=== PATIENT | female | born 1935 | race Caucasian/White ===

== ENCOUNTER 2019-11-27 09:04 | Emergency (ER) | payer MEDICARE, OTHER ==
[2019-11-27] MEDS ORDERED: Sodium Chloride 0.9% 10 ML Syringe FLUSH PRN (09:14)
[2019-11-27] MEDS ORDERED: Aspirin 81 MG Tab.Chew PO ONE (09:15)
[2019-11-27] MEDS ORDERED: Metoprolol Succinate 50 MG Tab.ER PO ONE (09:25)
[2019-11-27] MEDS ORDERED: Lisinopril 10 MG Tab PO ONE (09:26)
--- NOTE | 2019-11-27 09:34 | EDM.PDOC ---
ED HPI GENERAL MEDICAL PROBLEM - General Chief Complaint: Neurological Problem Stated Complaint: POSSIBLE STROKE Time Seen by Provider: 11/27/19 09:15 Source of Information: Reports: Patient History Limitations: Reports: Other (no old records) - History of Present Illness INITIAL COMMENTS - FREE TEXT/NARRATIVE: 84 yo female presents after transient L arm and leg weakness and numbness this morning that resulted in a fall without injury. Says she noted a rapid heart rate with this spell that she has had in the past and which has never been documented on a heart monitor so she does not know if this tachycardia represents afib or not. She is due for her morning dose of her HTN meds, but has not missed any doses. Sx's are completely resolved before arrival. Here with her . Just moved to the area from [place]. She is a retired nurse. No past hx of TIA or CVA. BP usually in the 120's systolic. Onset: Today Onset Date: 11/27/19 Duration: Minutes:, Resolved Prior to Arrival Location: Reports: Upper Extremity, Left, Lower Extremity, Left Quality: Reports: Other (no pain) Severity: Moderate Improves with: Reports: Other (time) Worsens with: Reports: Other (unknown, ? associated with her tachycardia) Context: Reports: Other (See HPI) Associated Symptoms: Reports: Headaches (mild sinus, not new), Weakness (L sided ). 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: Other (see below) (none) - Related Data Allergies Allergy/AdvReac Type Severity Reaction Status Date / Time egg yolk Allergy Unknown Cannot Verified 11/27/19 09:37 Remember Home Meds: Home Meds Aspirin 81 mg PO DAILY 11/27/19 [History] Glucosam/Chond-Msm1/C/Sebastian/Bor [Fttcquc-Rscox-KLH Complex Cplt] 1 each PO DAILY 11/27/19 [History] Levothyroxine Sodium [Synthroid] 75 mcg PO DAILY 11/27/19 [History] Loteprednol [Lotemax 0.5%] 1 drop EYELF DAILY 11/27/19 [History] Metoprolol Succinate 25 mg PO QPM 11/27/19 [History] Metoprolol Succinate 50 mg PO QAM 11/27/19 [History] Multivitamin [Multi-Day Vitamins] 1 tab PO DAILY 11/27/19 [History] Ubidecarenone [Coenzyme Q-10] 200 mg PO DAILY 11/27/19 [History] lisinopriL [Lisinopril] 5 mg PO DAILY 11/27/19 [History] Past Medical History HEENT History: Reports: Impaired Vision Cardiovascular History: Reports: Hypertension Endocrine/Metabolic History: Reports: Hypothyroidism - Infectious Disease History Infectious Disease History: Reports: Chicken Pox Social & Family History - Tobacco Use Smoking Status *Q: Never Smoker - Caffeine Use Caffeine Use: Reports: Coffee - Recreational Drug Use Recreational Drug Use: No ED ROS GENERAL - Review of Systems Review Of Systems: See Below Constitutional: Reports: No Symptoms HEENT: Reports: No Symptoms Respiratory: Reports: No Symptoms Cardiovascular: Reports: Palpitations (transiet) GI/Abdominal: Reports: No Symptoms : Reports: No Symptoms Musculoskeletal: Reports: No Symptoms Skin: Reports: No Symptoms Neurological: Reports: Numbness (L arm and leg), Difficulty Walking (during spell only), Weakness (L arm and L leg). Denies: Confusion, Dizziness, Headache , Trouble Speaking, Change in Speech Psychiatric: Reports: No Symptoms ED EXAM, NEURO - Physical Exam Exam: See Below Exam Limited By: No Limitations General Appearance: Alert, WD/WN, No Apparent Distress Eye Exam: Bilateral Eye: EOMI, Normal Inspection, PERRL Ears: Normal External Exam, Normal Canal, Hearing Grossly Normal, Normal TMs Nose: Normal Inspection, No Blood Throat/Mouth: Normal Inspection, Normal Lips, Normal Oropharynx, Normal Voice, No Airway Compromise Head Exam: Atraumatic, Normocephalic Neck: Normal Inspection Respiratory/Chest: No Respiratory Distress, Lungs Clear, Normal Breath Sounds, No Accessory Muscle Use Cardiovascular: Regular Rate, Rhythm, No Edema GI/Abdominal: Normal Bowel Sounds, Soft, Non-Tender, No Distention Neurological: Alert, Normal Mood/Affect, Normal Dorsiflexion, CN II-XII Intact, No Motor/Sensory Deficits, Oriented x 3. No: Abnormal Sensation, Difficulty Walking Back Exam: Normal Inspection. No: CVA Tenderness (R), CVA Tenderness (L) Extremities: Normal Inspection, Normal Range of Motion, Non-Tender, No Pedal Edema Psychiatric: Normal Affect, Normal Mood Skin Exam: Warm, Dry, Intact, Normal Color, No Rash EKG INTERPRETATION EKG Date: 11/27/19 Time: 09:45 Rhythm: NSR Rate (Beats/Min): 68 [place]: Normal P-Wave: Present QRS: Normal ST-T: Normal QT: Normal Comparison: NA - No Prior EKG Course - Vital Signs Last Recorded V/S: Last Vital Signs Temp 35.9 C L 11/27/19 09:09 Pulse 77 11/27/19 09:32 Resp 10 L 11/27/19 09:09 BP 186/85 H 11/27/19 09:32 Pulse Ox 99 11/27/19 09:09 - Orders/Labs/Meds Orders: Active Orders 24 hr Category Date Time Status Cardiac Monitoring [RC] .As Directed Care 11/27/19 09:14 Active EKG Documentation Completion [RC] ASDIRECTED Care 11/27/19 09:28 Active Carotid Comp [US] Stat Exams 11/27/19 11:11 Ordered Sodium Chloride 0.9% [Saline Flush] Med 11/27/19 09:14 Active 10 ml FLUSH ASDIRECTED PRN Saline Lock Insert [OM.PC] Routine Oth 11/27/19 09:14 Ordered EKG 12 Lead [EK] Routine Ther 11/27/19 09:28 Ordered Event Monitor [EK] Routine Ther 11/27/19 11:06 Ordered Medication Orders Sodium Chloride (Saline Flush) 10 ml FLUSH ASDIRECTED PRN PRN Reason: Keep Vein Open Last Admin: 11/27/19 09:34 Dose: 10 ml Labs: Laboratory Tests 11/27/19 11/27/19 11/27/19 Range/Units 09:44 09:44 09:44 WBC 5.9 (4.5-11.0) K/uL RBC 4.14 (3.30-5.50) M/uL Hgb 12.2 (12.0-15.0) g/dL Hct 39.0 (36.0-48.0) % MCV 94 (80-98) fL MCH 30 (27-31) pg MCHC 31 L (32-36) % Plt Count 265 (150-400) K/uL Sodium 138 L (140-148) mmol/L Potassium 4.8 (3.6-5.2) mmol/L Chloride 104 (100-108) mmol/L Carbon Dioxide 25 (21-32) mmol/L Anion Gap 13.8 (5.0-14.0) mmol/L BUN 20 H (7-18) mg/dL Creatinine 1.0 (0.6-1.0) mg/dL Est Cr Clr Drug Dosing 30.08 mL/min Estimated GFR (MDRD) 53 L (>60) Glucose 111 H (74-106) mg/dL Calcium 9.1 (8.5-10.1) mg/dL Troponin I < 0.017 (0.000-0.056) ng/mL Urine Color (YELLOW) Urine Appearance (CLEAR) Urine pH (5.0-8.0) Ur Specific [place] (1.008-1.030) Urine Protein (NEGATIVE) mg/dL Urine Glucose (UA) (NEGATIVE) mg/dL Urine Ketones (NEGATIVE) mg/dL Urine Occult Blood (NEGATIVE) Urine Nitrite (NEGATIVE) Urine Bilirubin (NEGATIVE) Urine Urobilinogen (0.2-1.0) EU/dL Ur Leukocyte Esterase (NEGATIVE) Urine RBC (0-5) Urine WBC (0-5) Ur Epithelial Cells Urine Bacteria 11/27/19 Range/Units 10:48 WBC (4.5-11.0) K/uL RBC (3.30-5.50) M/uL Hgb (12.0-15.0) g/dL Hct (36.0-48.0) % MCV (80-98) fL MCH (27-31) pg MCHC (32-36) % Plt Count (150-400) K/uL Sodium (140-148) mmol/L Potassium (3.6-5.2) mmol/L Chloride (100-108) mmol/L Carbon Dioxide (21-32) mmol/L Anion Gap (5.0-14.0) mmol/L BUN (7-18) mg/dL Creatinine (0.6-1.0) mg/dL Est Cr Clr Drug Dosing mL/min Estimated GFR (MDRD) (>60) Glucose (74-106) mg/dL Calcium (8.5-10.1) mg/dL Troponin I (0.000-0.056) ng/mL Urine Color Yellow (YELLOW) Urine Appearance Clear (CLEAR) Urine pH 6.5 (5.0-8.0) Ur Specific [place] 1.015 (1.008-1.030) Urine Protein Negative (NEGATIVE) mg/dL Urine Glucose (UA) Negative (NEGATIVE) mg/dL Urine Ketones Negative (NEGATIVE) mg/dL Urine Occult Blood Trace-lysed H (NEGATIVE) Urine Nitrite Negative (NEGATIVE) Urine Bilirubin Negative (NEGATIVE) Urine Urobilinogen 0.2 (0.2-1.0) EU/dL Ur Leukocyte Esterase Negative (NEGATIVE) Urine RBC Not seen (0-5) Urine WBC Not seen (0-5) Ur Epithelial Cells Not seen Urine Bacteria Not seen Meds: Medications Generic Name Dose Route Start Last Admin Trade Name Freq PRN Reason Stop Dose Admin Sodium Chloride 10 ml 11/27/19 09:14 11/27/19 09:34 Saline Flush FLUSH 10 ml ASDIRECTED PRN Administration Keep Vein Open Discontinued Medications Generic Name Dose Route Start Last Admin Trade Name Freq PRN Reason Stop Dose Admin Aspirin 324 mg 11/27/19 09:15 11/27/19 09:33 Aspirin PO 11/27/19 09:16 324 mg ONETIME ONE Administration Lisinopril 20 mg 11/27/19 09:26 11/27/19 09:32 Prinivil PO 11/27/19 09:27 20 mg ONETIME ONE Administration Metoprolol Succinate 50 mg 11/27/19 09:25 11/27/19 09:32 Toprol Xl PO 11/27/19 09:26 50 mg ONETIME ONE Administration - Radiology Interpretation Free Text/Narrative:: Head CT scan without contrast-neg CT Results Date: 11/27/19 CT Results Time: 13:12 - Re-Assessments/Exams Free Text/Narrative Re-Assessment/Exam: 11/27/19 10:36 Doing well, BP slowly coming down, still too high. Holter monitor next available tomorrow. Free Text/Narrative Re-Assessment/Exam: 11/27/19 11:12 Ambulated in the halls without issue. BP came down a bit more, still too high. States she has "white coat syndrome". Departure - Departure Time of Disposition: 13:15 Disposition: Home, Self-Care 01 Condition: Fair Clinical Impression: TIA (transient ischemic attack), Tachycardia HTN (hypertension) Qualifiers: Hypertension type: unspecified Qualified Code(s): I10 - Essential (primary) hypertension - Discharge Information *PRESCRIPTION DRUG MONITORING PROGRAM REVIEWED*: No *COPY OF PRESCRIPTION DRUG MONITORING REPORT IN PATIENT TMAY: No Instructions: Transient Ischemic Attack, [id number], Hypertension, Adult, [id number] Referrals: PCP,None [Primary Care Provider] - Forms: ED Department Discharge Additional Instructions: Increase your lisinopril to 20 mg daily( 5 mg x 4). Increase your metoprolol to 50 mg every 12 hrs. Increase your aspirin to 325 mg(Ecotrin) with a large meal daily. Return your event recorder as directed. Recheck with your provider next week, return if worse in the interim. Sepsis Event Note (ED) - Evaluation Sepsis Screening Result: No Definite Risk - Focused Exam Vital Signs: Vital Signs Temp Pulse Pulse Resp BP BP Pulse Ox 11/27/19 09:32 77 186/85 H 11/27/19 09:09 35.9 C L 83 10 L 189/91 H 99 - My Orders Last 24 Hours: My Active Orders 11/27/19 09:14 Cardiac Monitoring [RC] .As Directed Sodium Chloride 0.9% [Saline Flush] 10 ml FLUSH ASDIRECTED PRN Saline Lock Insert [OM.PC] Routine 11/27/19 09:28 EKG Documentation Completion [RC] ASDIRECTED EKG 12 Lead [EK] Routine 11/27/19 11:06 Event Monitor [EK] Routine 11/27/19 11:11 Carotid Comp [US] Stat - Assessment/Plan Last 24 Hours: My Active Orders 11/27/19 09:14 Cardiac Monitoring [RC] .As Directed Sodium Chloride 0.9% [Saline Flush] 10 ml FLUSH ASDIRECTED PRN Saline Lock Insert [OM.PC] Routine 11/27/19 09:28 EKG Documentation Completion [RC] ASDIRECTED EKG 12 Lead [EK] Routine 11/27/19 11:06 Event Monitor [EK] Routine 11/27/19 11:11 Carotid Comp [US] Stat
--- NOTE | 2019-11-27 13:10 | CT ---
Head wo Cont CLINICAL HISTORY: Left-sided weakness and numbness COMPARISON: None TECHNIQUE: Transverse scans were obtained from the base of the skull through the vertex without IV contrast on a multislice, multidetector CT scanner. A scribe dose FINDINGS: No focal abnormal parenchymal density is identified. There is no mass effect, hemorrhage, or extraaxial collection. The basal cisterns and sulci over the convexities are prominent. The ventricles are normal for age. IMPRESSION: Age-related atrophy. No focal lesion mass effect or hemorrhage
--- NOTE | 2019-11-27 14:32 | US ---
Carotid Comp INDICATION: TIA COMPARISON: TIA FINDINGS RIGHT: There is mild plaque in the right the carotid bifurcation. Peak systolic velocity in the internal carotid artery is 114 cm/sec. Diastolic velocity is 30 cm/sec. ICA/CCA ratio is 1.5. LEFT: There is minimal plaque in the left carotid bifurcation. Peak systolic velocity in the internal carotid artery is 80 cm/sec. Diastolic velocity is 35 cm/sec. ICA/CCA ratio is 1.0. External carotid arteries are patent bilaterally. Antegrade flow in both vertebral arteries. IMPRESSION: Mild plaque in the right carotid bifurcation and minimal plaque in the left. ICA stenosis is less than 50% bilaterally NASCET criteria used.
== END 2019-11-27 14:00 | disposition home or self-care (01) ==
LOC: JP.ED 09:04
DX: G45.9 Transient cerebral ischemic attack, unspecified (principal); I10 Essential (primary) hypertension; E03.9 Hypothyroidism, unspecified; Z91.012 Allergy to eggs; Z79.82 Long term (current) use of aspirin; Z79.899 Other long term (current) drug therapy
CPT/HCPCS: 36415; 70450; 80048; 81001; 84484; 85027; 93005; 93880; 99284; 99285; A9270; 93010

== ENCOUNTER 2019-11-30 10:07 | Emergency (ER) | payer MEDICARE, OTHER ==
--- NOTE | 2019-11-30 11:42 | EDM.PDOC ---
<Gerry Perez - Last Filed: 11/30/19 12:13> ED HPI GENERAL MEDICAL PROBLEM - General Chief Complaint: Cardiovascular Problem Stated Complaint: LIGHT HEADED, HEART PALPS Time Seen by Provider: 11/30/19 11:15 - Related Data Allergies Allergy/AdvReac Type Severity Reaction Status Date / Time egg yolk Allergy Unknown Cannot Verified 11/30/19 10:20 Remember Home Meds: Home Meds Aspirin 81 mg PO DAILY 11/27/19 [History] Glucosam/Chond-Msm1/C/Sebastian/Bor [Ravlohv-Ymrqk-FYV Complex Cplt] 1 each PO DAILY 11/27/19 [History] Levothyroxine Sodium [Synthroid] 75 mcg PO DAILY 11/27/19 [History] Loteprednol [Lotemax 0.5%] 1 drop EYELF DAILY 11/27/19 [History] Metoprolol Succinate 25 mg PO QPM 11/27/19 [History] Metoprolol Succinate 50 mg PO QAM 11/27/19 [History] Multivitamin [Multi-Day Vitamins] 1 tab PO DAILY 11/27/19 [History] Ubidecarenone [Coenzyme Q-10] 200 mg PO DAILY 11/27/19 [History] lisinopriL [Lisinopril] 20 mg PO DAILY 11/27/19 [History] Course - Vital Signs Last Recorded V/S: Last Vital Signs Temp Pulse 70 11/30/19 12:00 Resp 13 11/30/19 10:41 BP 167/84 H 11/30/19 12:00 Pulse Ox 98 11/30/19 10:41 - Orders/Labs/Meds Labs: Laboratory Tests 11/30/19 Range/Units 11:36 Magnesium 2.2 (1.8-2.4) mg/dL TSH, Ultra Sensitive 2.178 (0.358-3.740) uIU/mL Departure - Departure Disposition: Home, Self-Care 01 Clinical Impression: Palpitations Instructions: Palpitations, [id number] Referrals: PCP,None [Primary Care Provider] - Forms: ED Department Discharge Care Plan Goals: Keep monitor on until rechecked in 2 days. Mo medication changes unless you want to try Prilosec as discussed. Return if conditions change. Sepsis Event Note (ED) - Focused Exam Vital Signs: Vital Signs Pulse Resp BP Pulse Ox 11/30/19 12:00 70 167/84 H 11/30/19 11:30 73 158/80 H 11/30/19 11:15 77 184/89 H 11/30/19 10:55 74 171/75 H 11/30/19 10:41 73 13 161/75 H 98 11/30/19 10:30 76 161/75 H 11/30/19 10:19 80 13 190/79 H 98 - Assessment/Plan Plan: I personally performed or re-performed the physical examination and medical decision making. I have verified all student documentation or findings, including history, physical exam and/or medical decision making. <YelitzaanantEm M - Last Filed: 11/30/19 13:05> ED HPI GENERAL MEDICAL PROBLEM - General Source of Information: Reports: Patient History Limitations: Reports: No Limitations - History of Present Illness INITIAL COMMENTS - FREE TEXT/NARRATIVE: 84 year old female seen here in ER 11-27-19 with TIA like s/s of left arm and left leg numbness and tingling. Resolved prior to arrival. BL carotid US was negative. CT head negative. Pt is hypertensive. See VS. Pt is here again today with symptoms of "fast heat beat much like extra energy". Pt is wearing a Holter monitor. The "event" was recorder about 0923 today. Transmitted event from hospital landline to have Holter tech determine heart rhythm. Tech (Susie) indicated it was a sinus arrhythmia 64-103. No PAC, PJC's, Afib, or jct rhythms. Second recording was sinus rhythm 60-100. Will draw a Mag and TSH despite benign work up as an added assurance for pt. Pt will see PCP in about a month for yearly check up and to have thyroid checked. Onset: Gradual (Pt had 1st even of Sinus arr 11-27-19 and today 11-30-19. ) Duration: Intermittent, Recurring (2-3 episodes since 11-27-19) Location: Reports: Chest (Holter monitor), Abdomen Quality: Reports: Other (fleeting sense of extra energy) Improves with: Reports: None Worsens with: Reports: None Associated Symptoms: Reports: No Other Symptoms Past Medical History HEENT History: Reports: Impaired Vision Cardiovascular History: Reports: Arrhythmia, Hypertension Gastrointestinal History: Reports: Irritable Bowel Syndrome Genitourinary History: Reports: None Musculoskeletal History: Reports: Arthritis Neurological History: Reports: Headaches, Chronic, TIA Endocrine/Metabolic History: Reports: Hypothyroidism - Infectious Disease History Infectious Disease History: Reports: Chicken Pox, Measles, Mumps - Past Surgical History Head Surgeries/Procedures: Reports: None HEENT Surgical History: Reports: None Cardiovascular Surgical History: Reports: None GI Surgical History: Reports: Appendectomy Female Surgical History: Reports: Hysterectomy, Oophorectomy Endocrine Surgical History: Reports: None Neurological Surgical History: Reports: None Musculoskeletal Surgical History: Reports: Other (See Below) Other Musculoskeletal Surgeries/Procedures:: pin and screws in right ankle Dermatological Surgical History: Reports: None Social & Family History - Family History Family Medical History: Noncontributory - Tobacco Use Smoking Status *Q: Former Smoker Years of Tobacco use: 10 Packs/Tins Daily: 1 Used Tobacco, but Quit: Yes Month/Year Tobacco Last Used: 1949 Second Hand Smoke Exposure: No - Caffeine Use Caffeine Use: Reports: Coffee - Alcohol Use Days Per Week of Alcohol Use: 2 Number of Drinks Per Day: 1 Total Drinks Per Week: 2 - Recreational Drug Use Recreational Drug Use: No ED ROS GENERAL - Review of Systems Review Of Systems: See Below Constitutional: Reports: No Symptoms Respiratory: Reports: No Symptoms Cardiovascular: Reports: No Symptoms, Other (Holter monitor events 11-27-19 and . Transmitted to [facility]. See HPI) Endocrine: Reports: No Symptoms GI/Abdominal: Reports: No Symptoms : Reports: No Symptoms Musculoskeletal: Reports: No Symptoms Skin: Reports: No Symptoms, Rash Neurological: Reports: No Symptoms Psychiatric: Reports: Anxiety (mild and intermittent) Immunologic: Reports: No Symptoms ED EXAM, GENERAL - Physical Exam Exam: See Below Free Text/Narrative:: Pt is lying in hospital bed in no acute distress. Able to give H&P. Exam Limited By: No Limitations General Appearance: Alert, WD/WN, No Apparent Distress Head: Normocephalic Neck: Normal Inspection, Full Range of Motion Respiratory/Chest: No Respiratory Distress, Lungs Clear, Normal Breath Sounds, No Accessory Muscle Use, Chest Non-Tender Cardiovascular: Normal Peripheral Pulses, Regular Rate, Rhythm, No Edema, No Gallop, No JVD, No Murmur, No Rub Peripheral Pulses: 2+: Radial (L), Radial (R), Posterior Tibial (L), Posterior Tibial (R), Dorsalis Pedis (L), Dorsalis Pedis (R) GI/Abdominal: Normal Bowel Sounds Extremities: Normal Inspection, Normal Range of Motion, No Pedal Edema, Normal Capillary Refill Neurological: Alert, Oriented Psychiatric: Anxious (intermittent due to recorder heart events ) Skin Exam: Warm, Dry, Intact, Normal Color Course - Orders/Labs/Meds Labs: Laboratory Tests 11/30/19 Range/Units 11:36 Magnesium 2.2 (1.8-2.4) mg/dL TSH, Ultra Sensitive 2.178 (0.358-3.740) uIU/mL - Re-Assessments/Exams Free Text/Narrative Re-Assessment/Exam: 11/30/19 12:04 Pt remains SS. SR. While waiting for lab results, pt remembered sister had pheochromocytoma that elected tachycardia and HTN. 11/30/19 12:20 TSH and Mg normal. Pt to see PCP in 2 days. Asymptomatic and remained in SR all ER stay. Departure - Departure Time of Disposition: 12:52 Sepsis Event Note (ED) - Evaluation Sepsis Screening Result: No Definite Risk
== END 2019-11-30 12:53 | disposition home or self-care (01) ==
LOC: JP.ED 10:07
DX: R00.2 Palpitations (principal); I10 Essential (primary) hypertension; E03.9 Hypothyroidism, unspecified; Z87.891 Personal history of nicotine dependence; Z86.73 Personal history of transient ischemic attack (TIA), and cerebral infarction without residual deficits; Z91.012 Allergy to eggs; Z79.82 Long term (current) use of aspirin; Z79.899 Other long term (current) drug therapy
CPT/HCPCS: 36415; 83735; 84443; 99284

== ENCOUNTER 2019-12-04 09:41 | Emergency (ER) | payer MEDICARE, OTHER ==
--- NOTE | 2019-12-04 11:18 | EDM.PDOC ---
ED HPI GENERAL MEDICAL PROBLEM - General Chief Complaint: Cardiovascular Problem Stated Complaint: HEART ISSUES Time Seen by Provider: 12/04/19 10:28 Source of Information: Reports: Patient, Family, Old Records, RN Notes Reviewed History Limitations: Reports: No Limitations - History of Present Illness INITIAL COMMENTS - FREE TEXT/NARRATIVE: 84-year-old female presents emergency department a complaint of palpitations, she has been to the emergency department several times over the last week first evaluation concern for TIA with left-sided numbness and weakness work-up inclu ded CT scan and carotid ultrasound her symptoms lasted less than an hour. She has followed up with her primary adjustment of medications risk modification is currently being evaluated for her recent TIA she does have the event monitor in place and has been working on her cholesterol and her blood pressure issues. For the event today she did press the event monitor that she is wearing she felt she was having palpitations event lasted less than 2 minutes. She then reported to the emergency department for further evaluation we do have the output from the event monitor which demonstrates sinus rhythm no arrhythmias are detected - Related Data Allergies Allergy/AdvReac Type Severity Reaction Status Date / Time egg yolk Allergy Unknown Cannot Verified 12/04/19 10:06 Remember Home Meds: Home Meds Glucosam/Chond-Msm1/C/Sebastian/Bor [Jvahqxs-Gciau-DPU Complex Cplt] 1 each PO DAILY 11/27/19 [History] Levothyroxine Sodium [Synthroid] 75 mcg PO DAILY 11/27/19 [History] Loteprednol [Lotemax 0.5%] 1 drop EYELF DAILY 11/27/19 [History] Metoprolol Succinate 50 mg PO QAM 11/27/19 [History] Multivitamin [Multi-Day Vitamins] 1 tab PO DAILY 11/27/19 [History] Ubidecarenone [Coenzyme Q-10] 200 mg PO DAILY 11/27/19 [History] lisinopriL [Lisinopril] 20 mg PO DAILY 11/27/19 [History] Aspirin [Aspirin EC] 1 tab PO DAILY 12/04/19 [History] Past Medical History HEENT History: Reports: Impaired Vision Cardiovascular History: Reports: Arrhythmia, Hypertension Gastrointestinal History: Reports: Irritable Bowel Syndrome Genitourinary History: Reports: None Musculoskeletal History: Reports: Arthritis Neurological History: Reports: Headaches, Chronic, TIA Endocrine/Metabolic History: Reports: Hypothyroidism - Infectious Disease History Infectious Disease History: Reports: Chicken Pox, Measles, Mumps - Past Surgical History Head Surgeries/Procedures: Reports: None HEENT Surgical History: Reports: None Cardiovascular Surgical History: Reports: None GI Surgical History: Reports: Appendectomy Female Surgical History: Reports: Hysterectomy, Oophorectomy Endocrine Surgical History: Reports: None Neurological Surgical History: Reports: None Musculoskeletal Surgical History: Reports: Other (See Below) Other Musculoskeletal Surgeries/Procedures:: pin and screws in right ankle Dermatological Surgical History: Reports: None Social & Family History - Family History Family Medical History: Noncontributory - Tobacco Use Smoking Status *Q: Never Smoker - Caffeine Use Caffeine Use: Reports: Coffee ED ROS GENERAL - Review of Systems Review Of Systems: See Below Constitutional: Reports: No Symptoms HEENT: Reports: No Symptoms Respiratory: Reports: No Symptoms Cardiovascular: Reports: Palpitations GI/Abdominal: Reports: No Symptoms : Reports: No Symptoms Musculoskeletal: Reports: No Symptoms ED EXAM, GENERAL - Physical Exam Exam: See Below Exam Limited By: No Limitations General Appearance: Alert, WD/WN, No Apparent Distress Respiratory/Chest: No Respiratory Distress, Lungs Clear, Normal Breath Sounds, No Accessory Muscle Use, Chest Non-Tender Cardiovascular: Regular Rate, Rhythm, No Murmur GI/Abdominal: Soft, Non-Tender Course - Vital Signs Last Recorded V/S: Last Vital Signs Temp 97.5 F 12/04/19 10:16 Pulse 84 12/04/19 10:16 Resp 16 12/04/19 10:16 BP 196/84 H 12/04/19 10:16 Pulse Ox 98 12/04/19 10:16 - Orders/Labs/Meds Orders: Active Orders 24 hr Category Date Time Status CATECHOLAMINES, PLASMA Stat Lab 12/04/19 11:10 Ordered CATECHOLAMINES,UR.,FREE,24 HR Urgent Lab 12/04/19 11:10 Ordered METANEPHRINES, FRAC., PL. FREE Urgent Lab 12/04/19 11:10 Ordered Departure - Departure Time of Disposition: 11:24 Disposition: Home, Self-Care 01 Condition: Fair Clinical Impression: Palpitations Instructions: Palpitations Referrals: PCP,None [Primary Care Provider] - Additional Instructions: Recommend increasing metoprolol 50 mg in the morning 25 mg in the evening, you will be sent home with a 24-hour urine collection for catecholamines. I did discuss your care with your primary care provider she is planning on ordering an echocardiogram after you complete the event monitor. I would like you to follow-up with her in the next 5 to 7 days for reevaluation recheck of blood pressure and continued work-up of your TIA and the possibility of the pheochromocytoma Sepsis Event Note (ED) - Evaluation Sepsis Screening Result: No Definite Risk - Focused Exam Vital Signs: Vital Signs Temp Pulse Resp BP Pulse Ox 12/04/19 10:16 97.5 F 84 16 196/84 H 98 12/04/19 10:00 97.5 F 84 16 196/84 H 98 - My Orders Last 24 Hours: My Active Orders 12/04/19 11:10 CATECHOLAMINES, PLASMA Stat CATECHOLAMINES,UR.,FREE,24 HR Urgent METANEPHRINES, FRAC., PL. FREE Urgent - Assessment/Plan Last 24 Hours: My Active Orders 12/04/19 11:10 CATECHOLAMINES, PLASMA Stat CATECHOLAMINES,UR.,FREE,24 HR Urgent METANEPHRINES, FRAC., PL. FREE Urgent Plan: Assessment Acuity = acute Site and laterality = palpitations Etiology = unknown Manifestations = none Location of injury = Home Lab values = none Plan Call discussed case with her primary care provider at 1120 she is planning on get an echocardiogram after the event monitor is done patient was on 100 mg of metoprolol however did not feel well on this dose therefore she is in agreement to try 75 mg 50 in the morning 25 in the evening because of her family history of pheochromocytoma elected to order the blood work and a 24-hour urine collection for that she will then follow-up with your primary care in the next 5 to 7 days for continued evaluation of her blood pressure and palpitations as well as history of TIA This note was dictated using [employer] voice recognition software please call with any questions on syntax or grammar.
== END 2019-12-04 12:20 | disposition home or self-care (01) ==
LOC: JP.ED 09:41
DX: R00.2 Palpitations (principal); I10 Essential (primary) hypertension; M19.90 Unspecified osteoarthritis, unspecified site; E03.9 Hypothyroidism, unspecified; Z79.899 Other long term (current) drug therapy; Z79.82 Long term (current) use of aspirin; Z91.012 Allergy to eggs; Z86.73 Personal history of transient ischemic attack (TIA), and cerebral infarction without residual deficits
CPT/HCPCS: 82384; 83835; 84146; 99284

== ENCOUNTER 2022-03-17 09:09 | Emergency (ER) | payer MEDICARE, OTHER ==
[2022-03-17] MEDS ORDERED: Sodium Chloride 0.9% 10 ML Syringe FLUSH PRN (09:30)
[2022-03-17 10:22] LABS: ESTIMATED GFR 55 mL/min (>60)
== END 2022-03-17 11:15 | disposition home or self-care (01) ==
LOC: JP.ED 09:09
DX: R10.12 Left upper quadrant pain (principal); K30 Functional dyspepsia; I10 Essential (primary) hypertension; Z91.012 Allergy to eggs; Z79.899 Other long term (current) drug therapy; Z79.82 Long term (current) use of aspirin; Z86.16 Personal history of COVID-19; Z90.49 Acquired absence of other specified parts of digestive tract; Z90.710 Acquired absence of both cervix and uterus; Z87.891 Personal history of nicotine dependence
CPT/HCPCS: 36415; 71046; 80053; 83880; 84484; 85025; 85379; 93005; 93010; 99284; 99285; J3490

== ENCOUNTER 2023-10-27 10:21 | Emergency (ER) | payer MEDICARE, OTHER ==
[2023-10-27 10:58] LABS: APPEARANCE,URINE CLEAR (CLEAR); BILIRUBIN,URINE NEGATIVE (NEGATIVE); COLOR,URINE YELLOW (YELLOW); GLUCOSE,URINE NEGATIVE (NEGATIVE); KETONES,URINE NEGATIVE (NEGATIVE); LEUKOCYTE ESTERASE,URINE NEGATIVE (NEGATIVE); NITRITE,URINE NEGATIVE (NEGATIVE); OCCULT BLOOD,URINE TRACE-INTACT (NEGATIVE); PROTEIN,URINE NEGATIVE (NEGATIVE); UROBILINOGEN,URINE 0.2 EU/dL (0.2-1.0)
[2023-10-27 11:05] LABS: AMORPHOUS SEDIMENT,URINE RARE; BACTERIA,URINE NOT SEEN; EPITHELIAL CELLS,URINE MODERATE; MUCUS,URINE NOT SEEN; RBC,URINE 0-5 (0-5); WBC,URINE 0-5 (0-5)
[2023-10-27] MEDS ORDERED: Ondansetron 4 MG/2 ML SDV IVPUSH PRN (11:19)
[2023-10-27] MEDS ORDERED: Naloxone 0.4 MG/ML SDV IVPUSH PRN (11:19)
[2023-10-27 11:33] LABS: BASOPHILS ABSOLUTE AUTO 0.03 K/uL (0.00-0.10); BASOPHILS PERCENT AUTO 0.3 % (0.1-1.3); EOSINOPHILS ABSOLUTE AUTO 0.13 K/uL (0.00-0.40); EOSINOPHILS PERCENT AUTO 1.5 % (0.0-5.4); HEMATOCRIT 32.3 % (34.3-46.0); HEMOGLOBIN 10.9 g/dL (11.2-15.5); IMMATURE GRAN ABSOLUTE AUTO 0.03 K/uL (0.00-0.23); IMMATURE GRAN PERCENT AUTO 0.3 % (0.0-0.7); LYMPHOCYTES ABSOLUTE AUTO 1.73 K/uL (0.8-3.3); LYMPHOCYTES PERCENT AUTO 20.2 % (11.4-47.7); MEAN CORPUSCULAR HGB CONC 33.7 g/dL (31.6-35.5); MEAN CORPUSCULAR VOLUME 91.8 fL (81.4-99.0); MONOCYTES PERCENT AUTO 10.5 % (3.3-12.6); NEUTROPHILS ABSOLUTE AUTO 5.76 K/uL (1.0-7.6); NEUTROPHILS PERCENT AUTO 67.2 % (40.0-78.1); PLATELET COUNT,PLT 220 K/uL (130-375); RED BLOOD CELL COUNT 3.52 M/uL (3.77-5.24); WHITE BLOOD CELL COUNT,WBC 8.6 K/uL (3.2-11.0)
[2023-10-27 11:56] LABS: A/G RATIO 0.8 (1.2-2.2); ALANINE AMINOTRANSFERASE,ALT 16 U/L (12-78); ALBUMIN 3.2 g/dL (3.4-5.0); ALKALINE PHOSPHATASE 65 U/L (46-116); ASPARTATE AMNIOTRANSFERASE,AST 12 U/L (15-37); BILIRUBIN TOTAL 0.3 mg/dL (0.2-1.0); BLOOD UREA NITROGEN,BUN 18 mg/dL (7-18); CALCIUM 9.5 mg/dL (8.5-10.1); CARBON DIOXIDE,CO2 26 mmol/L (21-32); CHLORIDE,CL 105 mmol/L (100-108); CREATININE 0.9 mg/dL (0.6-1.0); ESTIMATED GFR 62 mL/min (>60); GLUCOSE RANDOM 119 mg/dL (74-106); PROTEIN TOTAL,TP 7.4 g/dL (6.4-8.2); SODIUM,NA 138 mmol/L (140-148)
[2023-10-27] MEDS: Sodium Chloride 0.9% 1,000 ML IV ONE (12:07)
[2023-10-27] MEDS: HYDROmorphone 0.5 MG/0.5 ML Syringe IVPUSH PRN (12:07)
[2023-10-27] MEDS: Sodium Chloride 0.9% 10 ML Syringe FLUSH ONE (17:01)
[2023-10-27] MEDS: Sodium Chloride 0.9% 100 ML IV ONE (17:01)
[2023-10-27] MEDS: Iopamidol 612 MG/ML 100 ML Bottle IV ONE (17:01)
== END 2023-10-27 15:11 | disposition home or self-care (01) ==
LOC: JP.ED 10:21
DX: R10.32 Left lower quadrant pain (principal); I10 Essential (primary) hypertension; M19.90 Unspecified osteoarthritis, unspecified site; E03.9 Hypothyroidism, unspecified; Z91.012 Allergy to eggs; Z79.899 Other long term (current) drug therapy; Z79.890 Hormone replacement therapy; Z79.82 Long term (current) use of aspirin; Z86.16 Personal history of COVID-19; Z90.49 Acquired absence of other specified parts of digestive tract; Z90.710 Acquired absence of both cervix and uterus
CPT/HCPCS: 36415; 74177; 80053; 81001; 83605; 83690; 85025; 85651; 96361; 96374; 99283; 99284; J1170; J3490; J7030; Q9967